=== PATIENT | female | born 1970 ===

== ENCOUNTER 2019-02-22 12:55 | Emergency (ER) | payer SELFPAY ==
[~2019-02-22] VITALS: Ht 157.5 cm; Wt 136.1 kg
--- NOTE | 2019-02-22 13:11 | ED Chest Pain ---
General Chief Complaint: Chest Wall Stated Complaint: SOB Source: patient Exam Limitations: no limitations History of Present Illness Date Seen by Provider: Feb 22, 2019 Time Seen by Provider: 13:04 Initial Comments To ER per private vehicle from home with reports of sharp sudden onset right- sided chest pain. Patient states that she was choking on some food which she does frequently, a friend did the Heimlich maneuver and she developed sharp right-sided lower chest pain immediately after that. Pain is worsening with deep breathing. She is now able to swallow. 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 She states she was diagnosed with this in [place] where she used to live, she has subsequently moved to [facility] and currently is staying at the [facility] here in [place]. Timing/Duration: changing over time Severity/Quality: moderate Radiation: no radiation Activities at Onset: none ASA po PROTOTYPE TECHNICIAN: No NTG SL PROTOTYPE TECHNICIAN: No Allergies and Home Medications Allergies Coded Allergies: naproxen (Verified Allergy, Unknown, 02/22/19) Patient Home Medication List Home Medication List Reviewed: Yes Review of Systems Review of Systems Constitutional: see HPI EENTM: No Symptoms Reported Respiratory: No Symptoms Reported Cardiovascular: Chest Pain Gastrointestinal: See HPI Genitourinary: No Symptoms Reported Musculoskeletal: no symptoms reported Skin: no symptoms reported Psychiatric/Neurological: No Symptoms Reported Endocrine: No Symptoms Reported Hematologic/Lymphatic: No Symptoms Reported Physical Exam Vital Signs Vital Signs - First Documented 02/22/19 12:58 Temp 99.3 Pulse 76 Resp 16 B/P (MAP) 179/105 (129) Pulse Ox 99 O2 Delivery Room Air Capillary Refill : Height, Weight, BMI Height: '" Weight: lbs. oz. kg; BMI Method: General Appearance: No Apparent Distress, WD/WN Neck: Full Range of Motion, Normal Inspection Respiratory: No Accessory Muscle Use, No Respiratory Distress Cardiovascular: Regular Rate, Rhythm, Normal Peripheral Pulses Gastrointestinal: Normal Bowel Sounds, Non Tender, Soft Extremity: Normal Capillary Refill, Normal Inspection Neurologic/Psychiatric: Alert, Oriented x3 Skin: Normal Color, Warm/Dry Progress/Results/Core Measures Results/Orders My Orders Orders - ROSE ROMERO APRN Ct Chest Wo (02/22/19 13:02) Fentanyl Injection (Sublimaze Injection (02/22/19 13:15) Hydrocodone/Apap 5/325 Tablet (Lortab 5 (02/22/19 13:30) Ct Head Wo (02/22/19 13:43) Medications Given in ED Current Medications Medications Dose Ordered Sig/Jp Route Start Time Stop Time Status Last Admin Dose Admin Acetaminophen/ Hydrocodone Bitart 1 tab ONCE ONCE PO 02/22/19 13:30 02/22/19 13:31 DC 02/22/19 13:41 1 TAB Vital Signs/I&O 02/22/19 12:58 Temp 99.3 Pulse 76 Resp 16 B/P (MAP) 179/105 (129) Pulse Ox 99 O2 Delivery Room Air Departure Impression Primary Impression: Rib pain Disposition: HOME, SELF-CARE Condition: Stable Departure-Patient Inst. Decision time for Depature: 14:10 Patient Instructions: RIB CONTUSION Add. Discharge Instructions: 1. Tylenol as needed for pain control 2. Return to ER for any concerns 3. See your doctor next week. All discharge instructions reviewed with patient and/or family. Voiced understanding. ROSE ROMERO COMPUTING CONSULTANT Feb 22, 2019 13:11
[2019-02-22] MEDS ORDERED: fentaNYL INJECTION 100 MCG/2 ML AMP IVP ONE (13:15)
[2019-02-22] MEDS ORDERED: HYDROcodone/APAP 5 MG/325 MG (LORTAB) TAB PO ONE (13:30)
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
[2019-02-22 14:29] VITALS: BP 174/89
== END 2019-02-22 14:41 | disposition home or self-care (01) ==
LOC: EDBD 12:58 → ER 12:58
DX: R07.81 Pleurodynia (principal); Z88.6 Allergy status to analgesic agent
CPT/HCPCS: 70450; 71250